=== PATIENT | male | born 1980 | race Caucasian/White ===

== ENCOUNTER 2016-12-28 23:49 | Inpatient (IN) | payer BC, OTHER ==
[2016-12-28 23:53] VITALS: BMI 25.1
[2016-12-29] MEDS ORDERED: METOCLOPRAMIDE HCL INJECTION 10 MG/2 ML VIAL IVPB ONE (00:59)
[2016-12-29] MEDS ORDERED: morphine CARPU-JECT 4 MG/1 ML DISP.SYRIN IVPUSH ONE (00:59)
[2016-12-29] MEDS ORDERED: SODIUM CHLORIDE 1,000 ML IV STA ×2 (00:59→04:45)
[2016-12-29] MEDS ORDERED: morphine CARPU-JECT 4 MG/1 ML DISP.SYRIN ONE (01:08)
[2016-12-29] MEDS ORDERED: METOCLOPRAMIDE HCL INJECTION 10 MG/2 ML VIAL ONE (01:09)
[2016-12-29 01:40] LABS: BASOPHIL 0.3 % (0-2.0); EOSINOPHIL 5.5 % (0-4.5); MCH 29.8 pg (25.7-33.7); MCHC 34.4 g/dl (32.0-35.9); MEAN CELL VOLUME 86.7 fl (80-96); MEAN PLT VOLUME 7.9 fl (7.5-11.1); NEUTROPHILS 43.2 % (42.8-82.8); PLATELET COUNT 260 K/MM3 (134-434); RDW 13.8 % (11.9-15.9); WHITE BLOOD COUNT 6.6 K/mm3 (4.0-10.0)
--- NOTE | 2016-12-29 02:25 | PDOC ---
History of Present Illness - General Chief Complaint: Pain Stated Complaint: ADOMINAL AND LOWER BACK PAIN Time Seen by Provider: 12/29/16 00:39 History Source: Patient Exam Limitations: No Limitations - History of Present Illness Travel History: No Initial Comments: 12/29/16 02:16 36yo Male patient presents to ED c/o abd pain which began yesterday at 3pm. Patient report pain began in LLQ radiating to LUQ to L. flank down lower back. Patient now states having a lot of pressure to his lower back. He states he has been using Motrin and hot pack with mild relief. Patient denies n/v/d, fever, CP , diff breathing, constipation, rectal bleeding, dysuria, hematuria, penile discharge, testicular pain, or any other complaints at this time. He states he only has one kidney but is unsure as to what side. Timing/Duration: reports: getting worse Quality: reports: severe Abdominal Pain Onset Location: reports: LUQ, LLQ Pain Radiation: reports: flank, back Activities at Onset: reports: eating Treatment Prior to Arrive: improves with: analgesics, heat Aggravating Factors: improves with: Movement, Change in position Alleviating Factors: worse with: None, Belching, Shallow Breathing, Defecation, Eating, Holding Breath, Passing Gas, Change in Position, Rest, Voiding, Vomiting Past History - Travel Traveled outside of the country in the last 30 days: No Close contact w/someone who was outside of country & ill: No - Past Medical History Allergies/Adverse Reactions: Allergies Allergy/AdvReac Type Severity Reaction Status Date / Time No Known Allergies Allergy Verified 12/28/16 23:51 Home Medications: Ambulatory Orders NK [No Known Home Medication] 12/03/15 Asthma: No Cardiac Disorders: No COPD: No Diabetes: No GI Disorders: No Disorders: No HTN: No Kidney Stones: No Suicide Attempt (Hx): No Seizures: No Other medical history: RENAL HYGENESIS - Surgical History Abdominal Surgery: No Appendectomy: No Cardiac Surgery: No Cholecystectomy: No Lung Surgery: No Neurologic Surgery: No Orthopedic Surgery: No - Reproductive History Testicular Surgery: No - Immunization History Immunization Up to Date: No - Psycho/Social/Smoking Cessation Hx Anxiety: No Suicidal Ideation: No Smoking History: Never smoked Have you smoked in the past 12 months: No Number of Cigarettes Smoked Daily: 0 Information on smoking cessation initiated: No 'Breaking Loose' booklet given: 12/03/15 Hx Alcohol Use: No Drug/Substance Use Hx: No Substance Use Type: Alcohol Hx Substance Use Treatment: No Abd/GI Specific PMHX - Complaint Specific PMHX Colitis: No Diverticulitis: No Gall Bladder Disease: No GERD: No Hepatitis: No Irritable Bowel Synd (IBS): No Pancreatitis: No GI Ulcer Disease: No Review of Systems - Review of Systems Able to Perform ROS?: Yes Is the patient limited [place] Islander proficient: No Constitutional: No: Chills, Fever Respiratory: No: Orthopnea, Shortness of Breath, Stridor, Wheezing Cardiac (ROS): No: Chest Pain ABD/GI: Yes: Other (Abdominal Pain). No: Constipated, Diarrhea, Nausea, Vomiting : Yes: Flank Pain (Left). No: Burning, Dysuria, Hematuria, Testicular Swelling, Testicular Pain Musculoskeletal: Yes: Back Pain. No: Muscle Pain, Muscle Weakness, Neck Pain Integumentary: No: Erythema, Rash Neurological: No: Headache, Seizure, Unsteady Gait, Ataxia All Other Systems: Reviewed and Negative *Physical Exam - Vital Signs Last Vital Signs Temp Pulse Resp BP Pulse Ox 97.5 F L 66 14 127/83 100 12/28/16 23:51 12/28/16 23:51 12/28/16 23:51 12/28/16 23:51 12/28/16 23:51 - Physical Exam General Appearance: Yes: Nourished, Appropriately Dressed, Apparent Distress, Severe Distress. No: Mild Distress, Moderate Distress Respiratory/Chest: positive: Lungs Clear, Normal Breath Sounds. negative: Respiratory Distress, Accessory Muscle Use, Labored Respiration, Rapid RR Cardiovascular: positive: Regular Rhythm, Regular Rate. negative: Edema, JVD, Murmur Gastrointestinal/Abdominal: positive: Soft, Decreased BS, Guarding (Involuntary) , Rebound (LLQ), Tenderness (LLQ) Musculoskeletal: positive: Normal Inspection. negative: CVA Tenderness Extremity: positive: Normal Capillary Refill, Normal Inspection, Normal Range of Motion Integumentary: positive: Normal Color, Dry, Warm Neurologic: positive: mohel II-XII NML intact, Fully Oriented, Alert, Normal Mood/ Affect, Normal Response, Motor Strength /5 ED Treatment Course - LABORATORY CBC & Chemistry Diagram: 12/29/16 01:24 12/29/16 01:24 - ADDITIONAL ORDERS Additional order review: 12/29/16 01:24 RBC 5.33 MCV 86.7 MCHC 34.4 RDW 13.8 MPV 7.9 Neutrophils % 43.2 Lymphocytes % 42.2 H D Monocytes % 8.8 Eosinophils % 5.5 H Basophils % 0.3 - RADIOLOGY Radiology Studies Ordered: Category Date Time Status ABDOMEN & PELVIS CT WITH CONTR [CT] Stat CT Scan 12/29/16 00:59 Ordered - Medications Given in the ED: ED Medications Discontinued Medications Generic Name Dose Route Start Last Admin Trade Name Freq PRN Reason Stop Dose Admin Sodium Chloride 1,000 mls @ 1,000 mls/hr 12/29/16 00:59 12/29/16 01:25 Normal Saline - IV 12/29/16 01:58 1,000 mls/hr ASDIR STA Administration Metoclopramide HCl 10 mg 12/29/16 00:59 12/29/16 01:25 Reglan Injection - IVPB 12/29/16 01:00 10 mg ONCE ONE Administration Morphine Sulfate 4 mg 12/29/16 00:59 12/29/16 01:24 Morphine Injection - IVPUSH 12/29/16 01:00 4 mg ONCE ONE Administration *DC/Admit/Observation/Transfer Diagnosis at time of Disposition: Acute appendicitis Qualifiers: Acute appendicitis type: unspecified acute appendicitis type Qualified Code(s) : K35.80 - Unspecified acute appendicitis - Discharge Dispostion Condition at time of disposition: Stable Admit: Yes
[2016-12-29 02:35] LABS: ALBUMIN 4.2 g/dl (3.4-5.0); ALK PHOS 77 U/L (45-117); AMYLASE 59 U/L (25-115); ANION GAP 10 (8-16); BILIRUBIN,TOTAL 0.5 mg/dL (0.2-1.0); CO2 26 mmol/L (21-32); CREATININE 1.2 mg/dL (0.7-1.3); GLUCOSE,RANDOM 92 mg/dL (74-106); SGOT/AST 28 U/L (15-37); SGPT/ALT 31 U/L (12-78); TOT PROT 8.1 g/dl (6.4-8.2)
[2016-12-29] MEDS ORDERED: ERTAPENEM SODIUM 1 GM in SODIUM CHLORIDE 50 ML IVPB ONE (04:45)
--- NOTE | 2016-12-29 05:23 | HP ---
CHIEF COMPLAINT: Abdominal Pain PCP: Rinku Melgar HISTORY OF PRESENT ILLNESS: 36 M who presents with abdominal pain. LLQ abdominal pain started at about 3 pm yesterday, and was located predominently on his left side. No fevers, chills, chest pain or pressure. No N/V/D. Notes he was taking Motrin at home, which did not relieve his pain. States he did not have any RLQ pain. Pmhx: Singular Kidney ER course was notable for: (1) CT- Acute Appendicitis (2) CBC- No leukocytosis (3) Invanz in Recent Travel: NO PAST MEDICAL HISTORY: As Above PAST SURGICAL HISTORY: No Social History: Smoking: No Alcohol:No Drugs: No Family History: Non- Contributory Allergies No Known Allergies Allergy (Verified 12/28/16 23:51) HOME MEDICATIONS: Medication Instructions Recorded NK [No Known Home Medication] 12/03/15 REVIEW OF SYSTEMS CONSTITUTIONAL: Absent: fever, chills, diaphoresis, generalized weakness, malaise, loss of appetite, weight change HEENT: Absent: rhinorrhea, nasal congestion, throat pain, throat swelling, difficulty swallowing, mouth swelling, ear pain, eye pain, visual changes CARDIOVASCULAR: Absent: chest pain, syncope, palpitations, irregular heart rate, lightheadedness , peripheral edema RESPIRATORY: Absent: cough, shortness of breath, dyspnea with exertion, orthopnea, wheezing, stridor, hemoptysis GASTROINTESTINAL: + abdominal pain, NO abdominal distension, nausea, vomiting, diarrhea, constipation, melena, hematochezia GENITOURINARY: Absent: dysuria, frequency, urgency, hesitancy, hematuria, flank pain, genital pain MUSCULOSKELETAL: Absent: myalgia, arthralgia, joint swelling, back pain, neck pain SKIN: Absent: rash, itching, pallor HEMATOLOGIC/IMMUNOLOGIC: Absent: easy bleeding, easy bruising, lymphadenopathy, frequent infections ENDOCRINE: Absent: unexplained weight gain, unexplained weight loss, heat intolerance, cold intolerance NEUROLOGIC: Absent: headache, focal weakness or paresthesias, dizziness, unsteady gait, seizure, mental status changes, bladder or bowel incontinence PSYCHIATRIC: Absent: anxiety, depression, suicidal or homicidal ideation, hallucinations. PHYSICAL EXAMINATION Vital Signs - 24 hr 12/28/16 23:51 Temperature 97.5 F L Pulse Rate 66 Respiratory 14 Rate Blood Pressure 127/83 O2 Sat by Pulse 100 Oximetry (%) GENERAL: Awake, alert, and fully oriented, in no acute distress. HEAD: Normal with no signs of trauma. EYES: Pupils equal, round and reactive to light, extraocular movements intact, sclera anicteric, conjunctiva clear. No lid lag. EARS, NOSE, THROAT: Ears normal, nares patent, oropharynx clear without exudates. Moist mucous membranes. NECK: Normal range of motion, supple without lymphadenopathy, JVD, or masses. LUNGS: Breath sounds equal, clear to auscultation bilaterally. No wheezes, and no crackles. No accessory muscle use. HEART: Regular rate and rhythm, normal S1 and S2 without murmur, rub or gallop. ABDOMEN: Soft, nontender, not distended, normoactive bowel sounds, no guarding, no rebound, no masses. No hepatomegaly or splenomegaly. MUSCULOSKELETAL: Normal range of motion at all joints. No bony deformities or tenderness. No CVA tenderness. UPPER EXTREMITIES: 2+ pulses, warm, well-perfused. No cyanosis. No clubbing. Cap refill <2 seconds. No peripheral edema. LOWER EXTREMITIES: 2+ pulses, warm, well-perfused. No calf tenderness. No peripheral edema. NEUROLOGICAL: Cranial nerves II-XII intact. Normal speech. Gait not assessed. PSYCHIATRIC: Cooperative. Good eye contact. Appropriate mood and affect. SKIN: Warm, dry, normal turgor, no rashes or lesions noted. Laboratory Results - last 24 hr 12/29/16 12/29/16 01:24 01:24 WBC 6.6 RBC 5.33 Hgb 15.9 Hct 46.2 MCV 86.7 MCHC 34.4 RDW 13.8 Plt Count 260 MPV 7.9 Neutrophils % 43.2 Lymphocytes % 42.2 H D Monocytes % 8.8 Eosinophils % 5.5 H Basophils % 0.3 Sodium 140 Potassium 4.1 Chloride 104 Carbon Dioxide 26 Anion Gap 10 BUN 21 H D Creatinine 1.2 Creat Clearance w eGFR > 60 Random Glucose 92 Calcium 9.0 Total Bilirubin 0.5 D AST 28 ALT 31 D Alkaline Phosphatase 77 D Total Protein 8.1 Albumin 4.2 Total Amylase 59 Lipase 127 ASSESSMENT/PLAN: 36 M with no pmhx who presents with abdominal Pain, found to have acute appendicitis 1.) Acute Appendicitis - NPO - SX Consult - Type and Screen - C/w Ertapenem 1g - IVF - Pain control - Coags - Cx 2.) Dvt Ppx - SCDs- Low Risk Ambulate Admit to Med-Sx Visit type - Emergency Visit Emergency Visit: Yes ED Registration Date: 12/29/16 Care time: The patient presented to the Emergency Department on the above date and was hospitalized for further evaluation of their emergent condition. - New Patient This patient is new to me today: Yes Date on this admission: 12/29/16 - Critical Care Critical Care patient: No
[2016-12-29] MEDS ORDERED: morphine CARPU-JECT 2 MG/1 ML DISP.SYRIN IVPUSH PRN ×2 (05:35→14:55)
[2016-12-29] MEDS ORDERED: ERTAPENEM SODIUM 1 GM VIAL ONE (05:35)
[2016-12-29] MEDS ORDERED: SODIUM CHLORIDE 1,000 ML IV SCH ×2 (05:45→14:55)
[2016-12-29 07:51] LABS: INR 1.04 (0.82-1.09); PROTHROMBIN TIME (PATIENT) 11.5 SEC (9.98-11.88)
[2016-12-29 07:53] LABS: ACTIVATED PTT 30.7 SECONDS (26.9-34.4)
[2016-12-29] MEDS ORDERED: BUPIVACAINE HCL/PF 0.5% (5MG/ML) 10 ML VIAL ONE (11:13)
[2016-12-29] MEDS ORDERED: PROPOFOL 20 ML ONE (12:54)
[2016-12-29] MEDS ORDERED: LIDOCAINE HCL/PF 2% SDV 5ML VIAL ONE ×2 (12:54→12:56)
[2016-12-29] MEDS ORDERED: MIDAZOLAM HCL 2 MG/2 ML SINGLE DOSE VIAL ONE (12:54)
[2016-12-29] MEDS ORDERED: SUCCINYLCHOLINE CHLORIDE 200 MG/10 ML VIAL ONE (12:55)
[2016-12-29] MEDS ORDERED: DEXAMETHASONE SOD PHOSPHATE 4 MG/1 ML VIAL ONE (12:59)
[2016-12-29] MEDS ORDERED: ROCURONIUM BROMIDE 50 MG/5 ML VIAL ONE (13:15)
[2016-12-29] MEDS ORDERED: PHENYLEPHRINE HCL 10 MG/1 ML SINGLE DOSE VIAL ONE (14:11)
[2016-12-29] MEDS ORDERED: GLYCOPYRROLATE 0.2 MG/1 ML VIAL ONE (14:11)
[2016-12-29] MEDS ORDERED: BUPIVACAINE HCL/PF 0.5% (5MG/ML) 10 ML VIAL IJ ONE (14:11)
[2016-12-29] MEDS ORDERED: NEOSTIGMINE METHYLSULFATE 0.5 MG/ML - 10 ML MDV ONE (14:11)
--- NOTE | 2016-12-29 14:25 | OP ---
Operative Note - Note: Operative Date: 12/29/16 Pre-Operative Diagnosis: acute appendicitis Operation: lap appendectomy Findings: acute appendicitis Post-Operative Diagnosis: Same as Pre-op Surgeon: Fortino Ames Division [employer] Supervisor: Vamsi Hernandez Anesthesia: General Specimens Removed: appendix Estimated Blood Loss (mls): 10 Drains & Tubes with Location: none Fluid Volume Replaced (mls): 1,000
--- NOTE | 2016-12-29 14:28 | CONSULT ---
Consultation: REQUESTING PROVIDER: er CONSULT REQUEST: We have been asked to surgically evaluate this patient for ( ABDOMINAL PAIN HISTORY OF PRESENT ILLNESS: 1 day of lower abdominl pain; w/u w/ CT a/p reveals appendicitis REVIEW OF SYSTEMS: as above; h/o atrophic right kidney PHYSICAL EXAMINATION Vital Signs Temperature 97.6 F 12/29/16 10:58 Pulse Rate 54 L 12/29/16 10:58 Respiratory Rate 16 12/29/16 10:58 Blood Pressure 105/69 12/29/16 10:58 O2 Sat by Pulse Oximetry (%) 98 12/29/16 10:58 GENERAL: Awake, alert, and fully oriented, in no acute distress. HEAD: Normal with no signs of trauma. ABDOMEN: Soft, tender RLQ, not distended, normoactive bowel sounds, no guarding , no rebound, no masses. No hepatomegaly or splenomegaly. No hernias MUSCULOSKELETAL: Normal range of motion at all joints. No bony deformities or tenderness. No CVA tenderness. UPPER EXTREMITIES: 2+ pulses, warm, well-perfused. No cyanosis. Cap refill <2 seconds. No peripheral edema. LOWER EXTREMITIES: 2+ pulses, warm, well-perfused. No calf tenderness. No peripheral edema. NEUROLOGICAL: Normal speech, gait not observed. PSYCH: Cooperative. Good eye contact. Appropriate mood and affect. SKIN: Warm, dry, normal turgor, no rashes or lesions noted. LABS:reviewed CT a/p reviewed w/ radiologist IMP/PLAN: lap appendectomy; r/b/t d/w patient including possible conversion to an open procedure. Fortino Ames MD FACS Visit type - Case Type Case Type: ED Admission - Emergency Emergency Visit: Yes ED Registration Date: 12/29/16 Care time: The patient presented to the Emergency Department on the above date and was hospitalized for further evaluation of their emergent condition. - New patient This patient is new to me today: Yes Date on this admission: 12/29/16 - Critical Care Critical Care patient: No
[2016-12-29] MEDS ORDERED: ONDANSETRON 4 MG/2 ML VIAL IVPUSH PRN ×2 (14:35→14:55)
--- NOTE | 2016-12-29 14:40 | SURG ---
Surgery Gift Shop Manager Note Gift Shop Manager: Vamsi Hernandez PA-C Date of Service: 12/29/16 Diagnosis: Acute appendicitis Procedure: Laparoscopic appendectomy I was present for the entirety of the operative procedure. For further detail, please refer to operative report. Visit type - Case Type Case Type: ED Admission - Emergency Emergency Visit: Yes ED Registration Date: 12/29/16 Care time: The patient presented to the Emergency Department on the above date and was hospitalized for further evaluation of their emergent condition. - New patient This patient is new to me today: Yes Date on this admission: 12/29/16
[2016-12-29] MEDS ORDERED: ACETAMINOPHEN 1000 MG/100 ML VIAL (NON FORMULARY) IVPB ONE (14:41)
[2016-12-29] MEDS ORDERED: LACTATED RINGERS SOLUTION 1,000 ML IV SCH ×2 (14:45→14:55)
[2016-12-29] MEDS ORDERED: ACETAMINOPHEN INJECTION 100 ML IVPB ONE (15:01)
[2016-12-29] MEDS: ACETAMINOPHEN 325 MG TABLET (FP) PO PRN (22:37)
[2016-12-30 07:46] LABS: MCH 30.4 pg (25.7-33.7); MCHC 34.9 g/dl (32.0-35.9); MEAN CELL VOLUME 87.1 fl (80-96); MEAN PLT VOLUME 7.8 fl (7.5-11.1); PLATELET COUNT 211 K/MM3 (134-434); RDW 13.7 % (11.9-15.9); WHITE BLOOD COUNT 9.2 K/mm3 (4.0-10.0)
[2016-12-30] MEDS: ACETAMINOPHEN 325 MG TABLET (FP) PO PRN (08:07)
[2016-12-30 09:02] LABS: CALCIUM 8.5 mg/dL (8.5-10.1)
--- NOTE | 2016-12-30 09:17 | OP ---
DATE OF OPERATION: 12/29/2016 PREOPERATIVE DIAGNOSIS: Acute appendicitis. POSTOPERATIVE DIAGNOSIS: Acute appendicitis. PROCEDURE: Laparoscopic appendectomy. SURGEON: Fortino Ames MD [employer] SUPERVISOR: Vamsi Hernandez PA-C ANESTHESIA: General. OPERATIVE FINDINGS: Acute appendicitis. The rest of the findings were unremarkable. DESCRIPTION OF PROCEDURE: The patient was placed on the operating table in supine position, and after the induction of general anesthesia, the patients abdomen was prepped with ChloraPrep and draped in sterile fashion. Pneumoperitoneum established above the umbilicus using a Veress needle. A 5-mm port was subsequently placed, and laparoscopy carried out, and the previously noted findings were observed. A suprapubic 12-mm port and a 5-mm left lower quadrant port were placed, as well, and then the appendix identified and the previously noted findings were observed. The mesoappendix was dissected and divided using the LigaSure. Once cleared down to its base, the 45-mm blue Endo JOSELYN was fired across the appendix. The appendix was placed in an EndoCatch and brought up against the abdominal wall. Hemostasis was checked for an noted to be good, and there was no evidence of purulent collection or free fluid for suction. The appendix was then brought out through the subxiphoid port, and pneumoperitoneum reestablished, and all port sites removed under laparoscopic vision without evidence of bleeding from the port sites. The port sites were then infiltrated with 0.5% Marcaine after the pneumoperitoneum was evacuated, and the defect in the fascia at the suprapubic port was closed with a single No. 2 figure-of-8 suture. All port sites were closed with 4-0 Biosyn in a subcuticular continuous fashion, and then Steri-Strips and Band-Aid dressings were placed, and the patient was roused from general anesthesia and transferred to the post-anesthesia care unit in stable condition, awake and alert. ESTIMATED BLOOD LOSS: 10 mL. REPLACEMENTS: Crystalloid. DRAINS: None. SPECIMENS: Appendix to Pathology. I, Fortino Ames, was physically present in the operating room from the time the patient was placed on the operating table until he was transferred to the post-anesthesia care unit in my accompaniment. MD UMA Van/[id number]
[2016-12-30] MEDS ORDERED: oxyCODONE HCL 5 MG TABLET PO PRN (11:07)
--- NOTE | 2016-12-30 12:21 | DS ---
Physical Exam: SUBJECTIVE: Patient seen and examined. Patient is experiencing some pain and soreness, but states he feels better. Patient has been tolerating his diet, voiding without issue, passing gas, and ambulating in the halls. He has no complaints. OBJECTIVE: Vital Signs Temperature 98.2 F 12/30/16 09:30 Pulse Rate 59 L 12/30/16 09:30 Respiratory Rate 20 12/30/16 09:30 Blood Pressure 108/49 12/30/16 09:30 O2 Sat by Pulse Oximetry (%) 100 12/29/16 21:00 PHYSICAL EXAM GENERAL: The patient is awake, alert, and fully oriented, in no acute distress. HEAD: Normal with no signs of trauma. EYES: PERRL, extraocular movements intact, sclera anicteric, conjunctiva clear. ENT: Ears normal, nares patent, oropharynx clear without exudates, moist mucous membranes. NECK: Trachea midline, full range of motion, supple. LUNGS: Breath sounds equal, clear to auscultation bilaterally, no wheezes, no crackles, no accessory muscle use. HEART: Regular rate and rhythm, S1, S2 without murmur, rub or gallop. ABDOMEN: Soft, tender to palp right abdomen, nondistended, normoactive bowel sounds, no guarding, no rebound. Dressings over port site incisions clean/dry/ intact. EXTREMITIES: 2+ pulses, warm, well-perfused, no edema. NEUROLOGICAL: Cranial nerves II through XII grossly intact. Normal speech, gait not observed. PSYCH: Normal mood, normal affect. SKIN: Warm, dry, normal turgor, no rashes or lesions noted. LABS CBC,CMP CBC, BMP 12/30/16 06:45 12/30/16 06:45 HOSPITAL COURSE: Date of Admission:12/29/16 Date of Discharge: 12/30/16 The patient presented to the ED complaining of abdominal pain for one day. Abdominal CT revealed appendicitis and the decision was made to take the patient to the OR for a laparoscopic appendectomy with Dr. Ames on 12/29/16. The patient was admitted to the Med-Surg Unit after the laparoscopic appendectomy. The operation proceeded as planned without complication. Please see operative report for complete detail. His hospital course was largely uneventful. Now, POD#1, the patient is tolerating his diet, advanced to a regular diet, ambulating in the hallways, voiding without issue, and pain is controlled. It was felt the patient is ready for discharge with Percocet Rx for pain control and instructions to follow-up with Dr. Ames in one week. The discharge instructions and an oral pain management plan were reviewed with the patient. All questions answered. Above plan discussed with Dr. Ames and agreed. Minutes to complete discharge: 30 Visit type - Case Type Case Type: ED Admission
--- NOTE | 2016-12-30 12:38 | PN ---
Progress Note (short form) - Note Progress Note: Attending Surgeon POD #1 s/p lap appendectomy Tolerated diet; voided and ambulated; minimal c/o pain VSS AF Port sites c/d/i; abdomen benign stable PLAN : D/C to [facility]PD f/u next week.
[2016-12-30 14:36] VITALS: BP 115/75; PULSE 60; TEMP 98.3
--- NOTE | 2016-12-31 14:26 | PATH ---
Surgical Pathology Report Patient Name: NIGEL BLANK [facility]. Rec. #: [id number] /Age/Gender: 1980 (Age: 36) / M Account: [id number] Location: [address] [place] [address] Taken: 12/29/2016 Received: 12/30/2016 Reported: 12/31/2016 Physicians: Fortino Ames MD Specimen(s) Received APPENDIX Clinical History Acute appendicitis Final Diagnosis APPENDIX, APPENDECTOMY: EARLY ACUTE APPENDICITIS. Electronically Signed Dedrick Cosme M.D. Gross Description Received in formalin, labeled "appendix" is a 8 cm in length vermiform appendix with a stapled margin of resection and moderate attached fat. The serosa is hamilton-rios and smooth. Sectioning reveals a focally hemorrhagic lumen. The wall of the appendix averages 0.1 cm in thickness. Medical Translator sections are submitted in one cassette. /12/30/201612/30/2016
== END 2016-12-30 14:36 | disposition home or self-care (01) | DRG 343 ==
LOC: JER 12-29 00:05 → JERBED 12-29 06:31 → J5S 12-29 16:31
PROVIDERS: ADMIT Surgery; ATTEND Surgery
PROC: 0DTJ4ZZ Resection of Appendix, Percutaneous Endoscopic Approach (ICD-10-PCS; principal; 2016-12-29 14:15)
DX: K35.80 Unspecified acute appendicitis (principal)
CPT/HCPCS: 36415; 74177-TC; 80048; 80053; 82150; 83690; 85025; 85027; 85610; 85730; 86850; 86900; 86901; 87040; 88304-TC; 94760; 99284-25

== ENCOUNTER 2020-01-04 05:57 | Emergency (ER) | payer BC ==
[2020-01-04 07:20] VITALS: BP 124/86; PULSE 98; TEMP 98.6; BMI 25.8
[2020-01-04] MEDS ORDERED: IBUPROFEN 600 MG TABLET (FP) PO ONE ×2 (07:43→08:16)
--- NOTE | 2020-01-04 08:11 | PDOC ---
History of Present Illness - General Chief Complaint: Cold Symptoms Stated Complaint: FLU-LIKE SYMPTOMS Time Seen by Provider: 01/04/20 07:23 History Source: Patient Exam Limitations: No Limitations - History of Present Illness Initial Comments: 01/04/20 08:08 39-year-old male presents the emergency room with complaints of body aches, headache, sore throat, and chills since 3 AM this morning. Patient denies recent travel recent sick contacts or recent illness. Patient denies medical history. Timing/Duration: 4-6 hours Severity: mild Associated Symptoms: reports: fever/chills, headaches, weakness Past History - Travel Traveled outside of the country in the last 30 days: No Close contact w/someone who was outside of country & ill: No - Past Medical History Allergies/Adverse Reactions: Allergies Allergy/AdvReac Type Severity Reaction Status Date / Time No Known Allergies Allergy Verified 01/04/20 07:18 Home Medications: Ambulatory Orders Oxycodone HCl/Acetaminophen [Percocet 5-325 mg Tablet] 1 tab PO Q4H PRN #20 tablet MDD 6 12/30/16 Asthma: No Cardiac Disorders: No COPD: No Diabetes: No GI Disorders: No Disorders: No HTN: No Kidney Stones: No Seizures: No - Surgical History Abdominal Surgery: No Appendectomy: No Cardiac Surgery: No Cholecystectomy: No Lung Surgery: No Neurologic Surgery: No Orthopedic Surgery: No - Reproductive History Testicular Surgery: No - Immunization History Immunization Up to Date: No - Psycho Social/Smoking Cessation Hx Smoking History: Never smoked Have you smoked in the past 12 months: No Number of Cigarettes Smoked Daily: 0 'Breaking Loose' booklet given: 12/03/15 Hx Alcohol Use: No Drug/Substance Use Hx: No Substance Use Type: Alcohol Hx Substance Use Treatment: No Patient Lives Alone: No Lives with/in: spouse/SO Review of Systems - Review of Systems Able to Perform ROS?: Yes Constitutional: Yes: Chills HEENTM: Yes: Throat Pain Respiratory: Yes: Cough Cardiac (ROS): No: Symptoms Reported ABD/GI: No: Symptoms Reported : No: Symptoms Reported Musculoskeletal: Yes: Joint Pain Integumentary: No: Symptoms Reported Neurological: Yes: Headache Endocrine: No: Symptoms Reported Hematologic/Lymphatic: No: Symptoms Reported *Physical Exam - Vital Signs Last Vital Signs Temp Pulse Resp BP Pulse Ox 98.6 F 98 H 16 124/86 99 01/04/20 07:18 01/04/20 07:18 01/04/20 07:18 01/04/20 07:18 01/04/20 07:18 - Physical Exam General Appearance: Yes: Nourished, Appropriately Dressed. No: Apparent Distress HEENT: positive: EOMI, JONAH, TMs Normal, Pharyngeal Erythema Neck: positive: Supple Respiratory/Chest: positive: Lungs Clear, Normal Breath Sounds. negative: Respiratory Distress, Accessory Muscle Use Cardiovascular: positive: Regular Rhythm, Regular Rate. negative: Murmur Gastrointestinal/Abdominal: positive: Soft. negative: Tenderness Integumentary: positive: Normal Color, Warm, Moist Neurologic: positive: Motor Strength 5/5 (Ambulatory) Medical Decision Making - Medical Decision Making 01/04/20 08:00 Chief complaint: URI symptoms since 3 AM. Exam: Erythema to the soft palate region no petechiae patient appears otherwise unremarkable Plan: Rapid strep influenza Motrin ordered 01/04/20 08:36 Laboratory Tests 01/04/20 01/04/20 07:30 07:30 Influenza A (Rapid) Negative Influenza B (Rapid) Negative Group A Strep Rapid Negative Patient will be discharged home with recommendations to drink plenty of fluids and rest 01/04/20 08:37 Patient states feeling better after receiving Motrin Discharge - Discharge Information Problems reviewed: Yes Clinical Impression/Diagnosis: Chills Condition: Improved Disposition: HOME - Follow up/Referral Referrals: Rinku Melgar MD [Primary Care Provider] - - Patient Discharge Instructions Patient Printed Discharge Instructions: DI for Viral Syndrome Additional Instructions: At this time I recommend drinking plenty of water and fluids. Take Motrin 600 mg every 8 hours, and rest for the next 2 days - Post Discharge Activity Work/Back to School Note: Back to Work
== END 2020-01-04 08:56 | disposition home or self-care (01) ==
LOC: JER 05:57
DX: R68.83 Chills (without fever) (principal)
CPT/HCPCS: 87070; 87804; 87880; 99281-25